=== PATIENT | female | born 1990 | race Hispanic/Latino ===

== ENCOUNTER 2018-04-06 10:01 | Emergency (ER) | payer SELFPAY ==
[~2018-04-06] VITALS: Ht 162.6 cm; Wt 99.8 kg
== END 2018-04-06 10:12 | disposition left against medical advice (07) ==
LOC: ER 10:01
DX: R50.9 Fever, unspecified (principal)

== ENCOUNTER 2021-03-22 10:10 | Emergency (ER) | payer SELFPAY ==
[~2021-03-22] VITALS: Ht 162.6 cm; Wt 99.8 kg
[2021-03-22] MEDS ORDERED: erythromycin OP (10:27)
== END 2021-03-22 10:40 | disposition home or self-care (01) ==
LOC: ER 10:20
DX: R60.9 Edema, unspecified (principal); F17.210 Nicotine dependence, cigarettes, uncomplicated
CPT/HCPCS: 99282

== ENCOUNTER 2021-08-11 03:33 | Emergency (ER) | payer SELFPAY ==
[~2021-08-11] VITALS: Ht 162.6 cm; Wt 129.3 kg
[~2021-08-11 03:33] MED LIST: erythromycin OP
[2021-08-11] MEDS ORDERED: ULTRAM50 MG PO (03:43)
[2021-08-11] MEDS ORDERED: TETANUS/DIPHTHERIA TOX ADULT 0.5 ML SYR IM ONE (03:45)
== END 2021-08-11 03:57 | disposition home or self-care (01) ==
LOC: ER 03:42
DX: T23.132A Burn of first degree of multiple left fingers (nail), not including thumb, initial encounter (principal); X15.8XXA Contact with other hot household appliances, initial encounter; Y99.0 Civilian activity done for income or pay; F17.210 Nicotine dependence, cigarettes, uncomplicated
CPT/HCPCS: 90471; 90714; 99283

== ENCOUNTER 2021-11-01 11:13 | Emergency (ER) | payer SELFPAY ==
[~2021-11-01] VITALS: Ht 162.6 cm; Wt 157.5 kg
[~2021-11-01 11:13] MED LIST changes: +ULTRAM50 MG PO
[2021-11-01 11:58] LABS: BASOPHILS # (AUTO) 0.1 (0.0-0.1); BASOPHILS % 0.7 % (0.0-1.0); EOSINOPHILS # (AUTO) 0.5 (0.0-0.4); EOSINOPHILS % 4.8 % (0.0-6.0); HEMATOCRIT 42.9 % (34.2-44.1); HEMOGLOBIN 12.4 g/dL (12.0-16.0); LYMPHOCYTES % 29.9 % (18.0-39.1); MEAN CORPUSCULAR HEMOGLOBIN 24.5 pg (28-32); MEAN CORPUSCULAR HGB CONC 28.9 g/dL (31-35); MEAN CORPUSCULAR VOLUME 84.6 fL (81-99); MONOCYTES # (AUTO) 0.7 (0.2-0.8); MONOCYTES % 6.5 % (4.4-11.3); NEUTROPHILS # (AUTO) 5.8 (2.1-6.9); NEUTROPHILS % 57.8 % (38.7-80.0); PLATELET COUNT 271 x10e3/uL (140-360); RED BLOOD COUNT 5.07 x10e6/uL (3.6-5.1); RED CELL DISTRIBUTION WIDTH 15.8 % (11.7-14.4)
[2021-11-01 12:20] LABS: ALBUMIN 3.4 g/dL (3.5-5.0); ALBUMIN/GLOBULIN RATIO 0.8 (0.8-2.0); CALCIUM 8.8 mg/dL (8.4-10.2); CREATININE, SERUM 0.74 mg/dL (0.57-1.11)
== END 2021-11-01 13:23 | disposition home or self-care (01) ==
LOC: ER 11:35
DX: I89.0 Lymphedema, not elsewhere classified (principal); F17.200 Nicotine dependence, unspecified, uncomplicated
CPT/HCPCS: 36415; 80053; 83880; 85025; 99283

== ENCOUNTER 2021-12-31 22:38 | Emergency (ER) | payer SELFPAY ==
[~2021-12-31] VITALS: Ht 162.6 cm; Wt 154.2 kg
[2021-12-31] MEDS ORDERED: ACETAMINOPHEN 325 MG TAB PO STA (23:32)
[2021-12-31] MEDS ORDERED: ACETAMINOPHEN 325 MG TAB ONE (23:46)
[2022-01-01] MEDS ORDERED: PAXLOVID CO-PA1 EACH PO (01:25)
== END 2022-01-01 01:35 | disposition home or self-care (01) ==
LOC: ER 23:35
DX: R50.9 Fever, unspecified (principal); U07.1 COVID-19; R05.9 Cough, unspecified; R53.81 Other malaise
CPT/HCPCS: 99283